=== PATIENT | male | born 1995 | race Caucasian/White ===

== ENCOUNTER 2018-12-23 09:44 | Emergency (ER) | payer OTHER, BC ==
[2018-12-23 09:49] VITALS: BP 118/80
--- NOTE | 2018-12-23 09:54 | ER Report ---
History and Physical Time Seen By MD: 09:50 Hx. 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 PAIN GETTING WORSE HPI/ROS CHIEF COMPLAINT: Right wrist pain HISTORY OF PRESENT ILLNESS: Patient said 2 weeks of intermittent pain to his right wrist numbness to his fingers does occur when he is laying at night occurs when he extends his wrists and his lifting icebags no trauma to the rest pain shoots up and suddenly palmar aspect of the wrist ventral surface no history of trauma or surgery to the wrist REVIEW OF SYSTEMS: Respiratory: No cough, no dyspnea. Cardiovascular: No chest pain, no palpitations. Gastrointestinal: No vomiting, no abdominal pain. Musculoskeletal: Patient has exam findings consistent with probable carpal tunnel Pain with flexion and palpation of the tendon sheath no snuffbox tenderness neurovascular intact otherwise normal range of motion Allergies: Coded Allergies: No Known Drug Allergies (Unverified , 12/23/18) Home Meds No Active Prescriptions or Reported Meds Reviewed Nurses Notes: Yes Old Medical Records Reviewed: Yes Constitutional Vital Sign - Last 24 Hours 12/23/18 09:49 Temp 97.4 Pulse 77 Resp 20 B/P (MAP) 118/80 Pulse Ox 93 O2 Delivery Room Air Physical Exam General appearance: Alert no distress. Respiratory: Chest is non tender, lungs are clear to auscultation. Cardiac: Regular rate and rhythm [ ] Wrist examination patient has pain with percussion of the carpal tendon sheath neurovascularly intact full range of motion of snuffbox tenderness DIFFERENTIAL DIAGNOSIS: After history and physical exam differential diagnosis was considered for tunnel versus wrist sprain versus fracture Medical Decision Making ED Course/Re-evaluation ED Course ED course 23-year-old male x-rays negative most likely carpal tunnel would put admitting putting him in a splint follow-up with his orthopedic physician Decision to Disposition Date: Dec 23, 2018 Decision to Disposition Time: 10:12 Depart Departure Latest Vital Signs Vital Signs Date Time Temp Pulse Resp B/P (MAP) Pulse Ox O2 Delivery O2 Flow Rate FiO2 12/23/18 09:49 97.4 77 20 118/80 93 Room Air Impression: Primary Impression: Carpal tunnel syndrome Condition: Improved Disposition: HOME OR SELF-CARE Referrals: LORRAINE CHRISTIANSON DO (PCP) VIANNEY ERNANDEZ MD 10 Days New Scripts No Active Prescriptions or Reported Meds Patient Instructions: Carpal Tunnel Surgery (DC) CHARLINE ELLISON MD Dec 23, 2018 09:54
--- NOTE | 2018-12-23 10:23 | RADIOLOGY IMAGING REPORT ---
FACILITY: [facility] PATIENT NAME: Elgin Mak : 1995 MR: [id number] V: [id number] EXAM DATE: ORDERING PHYSICIAN: CHARLINE ELLISON TECHNOLOGIST: Location: [facility] [place] Patient: Elgin Mak : 1995 Visit/Account:[id number] Date of Sevice: 12/23/2018 Right wrist, 2 views. HISTORY: Injury 2 weeks ago, pain. COMPARISON: None. The bones, joints, and soft tissues are unremarkable. Carpal alignment is unremarkable. No joint sp isabel narrowing. No acute fractures are identified. IMPRESSION: Negative for acute bony abnormality. Report Dictated By: Cl Sarah MD at 12/23/2018 10:15 AM Report E-Signed By: Cl Sarah MD at 12/23/2018 10:16 AM WSN:[id number]
== END 2018-12-23 10:26 | disposition home or self-care (01) ==
LOC: ER 09:49
DX: G56.01 Carpal tunnel syndrome, right upper limb (principal)
CPT/HCPCS: 73100; 99283; L3908